=== PATIENT | female | born 1975 | race African-American/Black ===

== ENCOUNTER 2018-04-28 08:30 | Inpatient (IN) | payer MEDICAID ==
[~2018-04-28] VITALS: Ht 165.1 cm; Wt 98.5 kg
[2018-04-28] MEDS ORDERED: EPINEPHRINE 1:1000 1 MG/ML AMP SUBCUT ONE (08:45)
[2018-04-28] MEDS ORDERED: MAGNESIUM 2 G PREMIX 50 ML IV ONE (08:45)
[2018-04-28] MEDS ORDERED: METHYLPREDNISOLONE SOD SUCC 125 MG/2 ML VIAL IV STA (08:45)
[2018-04-28] MEDS ORDERED: ALBUTEROL (0.083%) 2.5MG/3ML NEB HHN STA (08:45)
[2018-04-28] MEDS ORDERED: ASPIRIN 81MG TABLET PO STA (08:45)
[2018-04-28] MEDS ORDERED: IPRATROPIUM BROMIDE (0.02%) 0.5MG/2.5ML NEB HHN STA (08:45)
[2018-04-28] MEDS ORDERED: IPRATROPIUM/ALBUTEROL 0.5-3(2.5)MG/3ML NEB ONE (08:48)
[2018-04-28] MEDS ORDERED: ALBUTEROL (0.083%) 2.5MG/3ML NEB ONE ×2 (08:48→10:48)
[2018-04-28 09:05] LABS: BASOPHILS % 0.5 % (0.0-2.0); EOSINOPHILS % 0.8 % (0.0-5.0); HEMATOCRIT. 32.8 % (36.0-48.0); HEMOGLOBIN. 10.7 g/dL (12.0-16.0); LYMPHOCYTES % 28.9 % (20.0-50.0); MEAN CORPUSCULAR HEMOGLOBIN 27.8 pg (28.0-32.0); MEAN CORPUSCULAR VOLUME 85.4 fL (81.0-99.0); MEAN PLATELET VOLUME 8.3 fl (7.4-10.4); MONOCYTES % 10.7 % (2.0-8.0); NEUTROPHILS % 59.1 % (40.0-76.0); PLATELET 213 x1000/uL (130-400); RED BLOOD CELL COUNT 3.83 mill/uL (4.2-5.4); RED CELL DISTRIBUTION WIDTH 14.5 % (11.6-14.6)
[2018-04-28 09:11] LABS: CHLORIDE 112 mEq/L (98-107)
[2018-04-28 09:13] LABS: INR 1.1; PARTIAL THROMBOPLASTIN TIME 29.2 sec (23.4-31.0); PROTHROMBIN TIME 11.8 sec (9.4-11.6)
[2018-04-28] MEDS: MAGNESIUM SULFATE 2 GM in DEXTROSE 5% WATER 50 ML IV NR ×2 (09:24→09:25)
[2018-04-28 09:29] LABS: HCG SCREEN NEGATIVE
[2018-04-28 09:57] LABS: BG BASE EXCESS -8.1 mmol/L (-2.0-2.0); BG CARBOXYHEMOGLOBIN 0.3 % (0.5-1.5); BG DEOXYHEMOGLOBIN 0.6 % (0.0-5.0); BG FRACTION INSPIRED OXYGEN 100; BG HCO3 ACT 15.6 mmol/L (22.0-26.0); BG METHEMOGLOBIN 0.4 % (0.0-1.5); BG OXYGEN SATURATION 99.4 % (92.0-98.5); BG OXYHEMOGLOBIN 98.7 % (94.0-97.0); BG PCO2 26.6 mmHg (35.0-45.0); BG PH 7.386 (7.350-7.450); BG PO2 355.8 mmHg (75.0-100.0); BG SAMPLE SITE RIGHT RADIAL; BG TOTAL HEMOGLOBIN 11.1 g/dL (12.0-18.0); BG VENT MODE MASK - NRB
[2018-04-28] MEDS ORDERED: KCL 20MEQ/100ML PREMIX 100 ML IV ONE (10:00)
[2018-04-28] MEDS ORDERED: GUAIFENESIN-DM 200MG-20MG/10ML UDC PO ONE (10:45)
[2018-04-28] MEDS ORDERED: ALBUTEROL (0.5%) 2.5MG/0.5ML NEB HHN ONE (10:45)
[2018-04-28] MEDS ORDERED: ACETAMINOPHEN 325MG TABLET PO PRN (16:00)
[2018-04-28] MEDS ORDERED: LEVOFLOXACIN 500MG PREMIX 100 ML IV SCH (16:00)
[2018-04-28] MEDS ORDERED: NITROGLYCERIN 0.4MG TABLET SL SL PRN (16:00)
[2018-04-28] MEDS ORDERED: DIPHENHYDRAMINE 50MG/ML VIAL IV PRN (16:00)
[2018-04-28] MEDS ORDERED: ONDANSETRON HCL 4MG/2ML VIAL IV PRN (16:00)
[2018-04-28] MEDS ORDERED: POTASSIUM CHLORIDE 20MEQ TABLET SR PO NR (16:00)
[2018-04-28] MEDS ORDERED: IPRATROPIUM/ALBUTEROL 0.5-3(2.5)MG/3ML NEB INH PRN (16:00)
[2018-04-28] MEDS ORDERED: CLONIDINE 0.1MG TABLET PO PRN (16:00)
[2018-04-28] MEDS ORDERED: MAGNESIUM/ALUMINUM HYDROXIDE/SIMETHICONE 30ML UDC PO PRN (16:00)
[2018-04-28] MEDS ORDERED: LORAZEPAM 0.5MG TABLET PO PRN (16:00)
[2018-04-28] MEDS ORDERED: DOCUSATE SODIUM 100MG CAPSULE PO PRN (16:00)
[2018-04-28] MEDS ORDERED: LEVOFLOXACIN 500MG PREMIX 100 ML IV NR (16:15)
[2018-04-28] MEDS: GUAIFENESIN 200MG/10ML SUGAR FREE UDC PO PRN (16:38)
[2018-04-28] MEDS: KETOROLAC 15MG/ML VIAL IV PRN (17:42)
[2018-04-28 20:00] VITALS: BP 164/83
[2018-04-28] MEDS ORDERED: KCL 20MEQ/100ML PREMIX 100 ML IV NR (20:19)
[2018-04-28] MEDS ORDERED: NA PHOS,M-B/NA PHOS,DI-BA ENEMA 118ML PR PRN (21:00)
[2018-04-28] MEDS ORDERED: ZOLPIDEM TARTRATE 5MG TABLET PO PRN (21:00)
[2018-04-28] MEDS: FAMOTIDINE 20MG TABLET PO SCH (21:00)
[2018-04-28 21:45] VITALS: BP 95/71
[2018-04-28] MEDS: IPRATROPIUM/ALBUTEROL 0.5-3(2.5)MG/3ML NEB HHN SCH (22:09)
[2018-04-28 22:42] LABS: *BARBITURATES SCREEN URINE NEGATIVE (NEGATIVE); *COCAINE SCREEN URINE NEGATIVE (NEGATIVE); METHADONE URINE SCREEN NEGATIVE (NEGATIVE)
[2018-04-28 22:43] LABS: *BENZODIAZEPINES SCREEN URINE NEGATIVE (NEGATIVE); OPIATES URINE SCREEN NEGATIVE (NEGATIVE); PHENCYCLIDINE URINE SCREEN NEGATIVE (NEGATIVE)
[2018-04-28 22:44] LABS: *AMPHETAMINES SCREEN URINE NEGATIVE (NEGATIVE)
[2018-04-28 22:46] LABS: CANNABINOID URINE SCREEN PRESUMTIVE POSITIVE (NEGATIVE)
[2018-04-29] VITALS: BP 117/63
[2018-04-29] MEDS: METHYLPREDNISOLONE SOD SUCC 125 MG/2 ML VIAL IV SCH ×3 (00:02→13:50)
[2018-04-29] MEDS: KETOROLAC 15MG/ML VIAL IV PRN ×2 (00:02→08:25)
[2018-04-29 00:05] LABS: CREATINE KINASE MB FRACTION 2.2 ng/mL (0.5-3.6)
[2018-04-29] MEDS: IPRATROPIUM/ALBUTEROL 0.5-3(2.5)MG/3ML NEB HHN SCH ×4 (03:52→15:17)
[2018-04-29 04:00] VITALS: BP 123/58
[2018-04-29 08:00] VITALS: BP 145/85
[2018-04-29] MEDS: FAMOTIDINE 20MG TABLET PO SCH (08:25)
[2018-04-29] MEDS ORDERED: GUAIFENESIN/DM 600MG/30MG ER TAB 12HR PO SCH (09:00)
[2018-04-29] MEDS ORDERED: ASPIRIN 325MG EC TABLET PO SCH (09:00)
[2018-04-29] MEDS ORDERED: ENOXAPARIN 40MG/0.4ML SYR SUBCUT SCH (09:00)
[2018-04-29 11:15] LABS: CREATINE KINASE MB FRACTION 3.3 ng/mL (0.5-3.6)
[2018-04-29 11:43] VITALS: BP 140/66
[2018-04-29 12:20] LABS: BASOPHILS % 0.1 % (0.0-2.0); HEMOGLOBIN. 10.4 g/dL (12.0-16.0); LYMPHOCYTES % 15.7 % (20.0-50.0); MEAN CORPUSCULAR HEMOGLOBIN 27.7 pg (28.0-32.0); MEAN CORPUSCULAR VOLUME 85.4 fL (81.0-99.0); MEAN PLATELET VOLUME 8.6 fl (7.4-10.4); MONOCYTES % 4.6 % (2.0-8.0); NEUTROPHILS % 79.6 % (40.0-76.0); PLATELET 253 x1000/uL (130-400); RED BLOOD CELL COUNT 3.75 mill/uL (4.2-5.4); RED CELL DISTRIBUTION WIDTH 14.6 % (11.6-14.6)
[2018-04-29 12:31] LABS: CHLORIDE 111 mEq/L (98-107)
[2018-04-29 16:00] VITALS: BP 145/84
[2018-04-29] MEDS ORDERED: LEVOFLOXACIN 500MG PREMIX 100 ML IV SCH (17:00)
[2018-04-29] MEDS ORDERED: ENOXAPARIN 30MG/0.3ML SYR SUBCUT SCH (21:00)
== END 2018-04-29 17:05 | disposition left against medical advice (07) | DRG 140 ==
LOC: ER 08:30 → 5WST 12:30 → ENRESERV 19:56
PROVIDERS: ADMIT Internal Medicine; ATTEND Internal Medicine
DX: J44.1 Chronic obstructive pulmonary disease with (acute) exacerbation (principal); I21.4 Non-ST elevation (NSTEMI) myocardial infarction; J96.00 Acute respiratory failure, unspecified whether with hypoxia or hypercapnia; E44.0 Moderate protein-calorie malnutrition; J45.901 Unspecified asthma with (acute) exacerbation; E83.51 Hypocalcemia; D63.8 Anemia in other chronic diseases classified elsewhere; I11.9 Hypertensive heart disease without heart failure; E87.6 Hypokalemia; E11.9 Type 2 diabetes mellitus without complications; R00.1 Bradycardia, unspecified; Z53.21 Procedure and treatment not carried out due to patient leaving prior to being seen by health care provider; Z79.4 Long term (current) use of insulin; Z79.899 Other long term (current) drug therapy; Z87.891 Personal history of nicotine dependence; Z88.0 Allergy status to penicillin; Z68.36 Body mass index [BMI] 36.0-36.9, adult
CPT/HCPCS: 36415; 36600; 71045; 80048; 80053; 80305; 82375; 82550; 82553; 82805; 83036; 83880; 84484; 84703; 85025; 85610; 85730; 93005; 93970; 94640; 96365; 96367; 96372; 96375; 99285; G0482; J1650; J1885; J1956; J2930; J3475; J3480; J3490; J7040; J7060; J7611; J7620